=== PATIENT | male | born 1945 | race Caucasian/White ===

== ENCOUNTER 2017-06-27 21:25 | Inpatient (IN) | payer MEDICARE, OTHER ==
[~2017-06-27] VITALS: Ht 177.8 cm; Wt 121.6 kg
--- NOTE | ~2017-06-27 | H ---
[address] [address] HISTORY AND PHYSICAL Name: VIOLET VILCHIS Room: [address]#: [id number] Admission: 06/27/17 Attend Phys: Verna Marquez Discharge: 06/29/17 Date of : 41 Report #: [id number] THIS REPORT FOR: //name// Please refer to the History and Physical performed in the physician's office. By: [id number] Records Staff JN /HEATHER
[~2017-06-27 21:25] MED LIST: ALLOPURINOL 10100 M1 PO; ASPIR 8181 MG PO; ATENOLOL 25 MG25 M1 PO; ATENOLOL 50MG T50 MG PO; CLARITIN10 MG PO; COLCHICINE0.6 MG PO; COUMADIN 5 MG TA5 M1 PO; COUMADIN7.5 MG PO; FLURBIPROFEN100 MG PO; GLUCOTROL5 MG PO; HYDRALAZINE 2525 MG PO; MAGOX 400400 MG PO; NORCO 5-325 TA1 EAC1 PO; TRIAMTERENE/HCT1 CA1 PO; ZANTAC 150MG T150 MG PO
[2017-06-27 21:27] VITALS: BP 180/101
[2017-06-27] MEDS ORDERED: ELIQUIS5 MG PO (21:35)
[2017-06-27 22:00] LABS: ABSOLUTE BASOPHILS 0.1 thou/uL (0.0-0.2); ABSOLUTE EOSINOPHILS 0.2 thou/uL (0.0-0.7); ABSOLUTE LYMPHOCYTES 1.3 thou/uL (0.8-5.3); ABSOLUTE MONOCYTES 0.7 thou/uL (0.0-1.2); ABSOLUTE NEUTROPHILS 7.9 thou/uL (1.6-8.1); EOSINOPHILS 1.9 %; HEMATOCRIT 46.1 % (42.0-52.0); LYMPHOCYTES 12.6 %; MCH 33.8 pg (26.0-34.0); MCHC 34.6 g/dL (28.0-37.0); MCV 97.9 fL (80.0-100.0); MONOCYTES 6.6 %; MPV 7.7 fl. (7.2-11.1); NUCLEATED RBCS 0 /100WBC; PLATELET COUNT* 196 thou/uL (150-400); POLYS 77.9 %; RBC 4.71 mil/uL (4.50-6.00); RDW-CV 14.3 % (10.5-14.5); WBC 10.2 thou/uL (4.0-11.0)
[2017-06-27 22:07] LABS: ANION GAP 8 mmol/L (7-16); BUN 23 mg/dL (7-18); CALCIUM 9.2 mg/dL (8.5-10.1); CHLORIDE 102 mmol/L (98-107); CO2 31 mmol/L (21-32); CREATININE 1.5 mg/dL (0.6-1.3); GLUCOSE 129 mg/dL (70-99); POTASSIUM 3.7 mmol/L (3.5-5.1); SODIUM 141 mmol/L (136-145)
[2017-06-27 22:18] LABS: URINE BILIRUBIN NEGATIVE (Negative); URINE BLOOD 2+ (Negative); URINE CLARITY CLEAR; URINE COLOR YELLOW; URINE GLUCOSE-RANDOM NEGATIVE (Negative); URINE KETONES NEGATIVE (Negative); URINE LEUKOCYTES-REFLEX 1+ (Negative); URINE NITRITE-REFLEX NEGATIVE (Negative); URINE PROTEIN 3+ (Negative); URINE UROBILINOGEN 0.2 E.U./dl (0.2-1.0)
[2017-06-27 22:18] LABS: ALBUMIN 3.2 g/dL (3.4-5.0); ALKALINE PHOSPHATASE 94 U/L (46-116); LIPASE 160 U/L (73-393); NT-PRO BRAIN NAT PEPTIDE 412 pg/mL (<300); SGOT 25 U/L (15-37); SGPT 39 U/L (30-65); TOTAL BILIRUBIN 0.4 mg/dL (<0.1-1.0); TOTAL PROTEIN 7.3 g/dL (6.4-8.2); TROPONIN-I LEVEL <0.06 ng/mL (<0.06)
[2017-06-27 22:33] LABS: BACTERIA-REFLEX 1-9 Few /HPF (None Seen); CASTS None Seen /LPF (None Seen); SQUAMOUS NONE SEEN /LPF (0-3); URINE RBC 3-10 Few /HPF (0-2); URINE WBC-REFLEX 6-15 Few /HPF (0-5)
[2017-06-27 22:34] LABS: CRYSTALS None Seen /LPF (None Seen)
[2017-06-27 23:53] VITALS: BP 148/85
[2017-06-28] VITALS: BP 182/86
[2017-06-28 04:00] VITALS: BP 158/80
--- NOTE | 2017-06-28 05:37 | NUR ---
ASSUMED CARE OF PATIENT AT APPROXIMATELY 0000. PATIENT TO UNIT AT APPROXIMATELY 0000 ACCOMPANIED BY ED STAFFING. PATIENT ACCLIMATED TO ROOM AND CALL LIGHT ON FLOOR. PATIENT CONTINUES TO HAVE CRACKLES BILATERALLY IN LUNGS. ASSESSMENT YIELDS 3+ PITTING EDEMA ON RIGHT ANKLE AND 2+ PITTING EDEMA ON LEFT ANKLE. PULSES APPROPRIATE IN ALL EXTREMETIES. PATIETN CONTINUES TO BE ON 2L O2 WITH SATS ABOVE 93%. PATIENT UP WITH ASSIST TO BATHROOM AND HAS MOSTLY STEADY GAIT. PATIENT DENIES PAIN AND HAS REQUESTED NO PAIN MEDICATIONS OVERNIGHT. PATIENT VOIDING WELL AND HE STATES THAT HE FEELS LESS "TIGHT" IN HIS LOWER EXTREMETIES. NURSING TO FOLLOW-UP NECESSARY. ALL FALL PRECAUTIONS IN PLACE, INCLUDING CALL LIGHT WITHIN REACH. WILL CONTINUE TO MONITOR CLOSELY.
[2017-06-28 08:00] VITALS: BP 182/84
[2017-06-28 12:00] VITALS: BP 181/99
--- NOTE | 2017-06-28 14:38 | EKG ---
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: : 1945 Requested By: Pino Garcia Order Number: [id number] MD: Collin Rausch Measurements Intervals [place] Rate: 79 P: 34 NE: 176 QRS: 45 QRSD: 99 T: 32 QT: 393 QTc: 451 Interpretive Statements Sinus rhythm Inferior infarct, old Compared to ECG 11/09/2008 04:51:32 No significant changes Electronically Signed On 06-28-2017 14:38:10 TIMBER MANAGEMENT SPECIALIST by Collin Rausch [email or web address] <ELECTRONICALLY SIGNED> By: Collin Rausch MD, [facility] 06/28/17 1438 27 27 Collin Rausch MD, [facility] /EPI
[2017-06-28 16:31] VITALS: BP 136/80
--- NOTE | 2017-06-28 18:27 | NUR ---
ASSUMED CARE OF PT AT 0730. PT CONTINUES TO BE A&O X4 AND CAN BE FORGETFUL AT TIMES. HE HAS HAD NO C/O PAIN TODAY OTHER THAN MINOR LEFTY SHOULDER PAIN THAT HE DENIES THE NEED FOR PHARMACOLOGICAL INTERVENTION FOR. PT HAS A STEADY GAIT AND AMBULATES TO THE BATHROOM WITH SBA. LUNGS ARE COARSE WITH WHEEZE , BLE EDMA INS IMPROVING WITH IV LASIX AND PT IS URINATING ADEQUATE AMOUNTS AND IS REGULATING HIS FREE FLUID INTAKE. PT CURRENTLY RESTING IN CHAIR AT BEDSIDE. NURSING WILL CONTINUE TO MONITOR.
[2017-06-28 20:30] VITALS: BP 162/87
[2017-06-29] VITALS: BP 150/83
[2017-06-29 04:48] VITALS: BP 180/87
--- NOTE | 2017-06-29 05:17 | NUR ---
ASSUMED PT CARE AT 1930, PT IS A&OX4, TRACING NSR ON THE MONITOR, ON RA SATTING MID TO HIGH 90'S. PT IS UP AD KELLY IN HIS ROOM AND STABLE ON HIS FEET. PT DENIES ANY PAIN OR NEEDS AT THIS TIME. BED IN LOW POSITION, CALL LIGHT IN REACH, HOURLY ROUNDING COMPLETED FOR PT SAFETY.
[2017-06-29 08:00] VITALS: BP 137/80
[2017-06-29 13:20] VITALS: BP 135/80
[2017-06-29] MEDS ORDERED: LISINOPRIL2.5 MG PO (14:57)
[2017-06-29 14:59] VITALS: BP 135/80
--- NOTE | 2017-06-29 15:38 | NUR ---
ASSUMED CARE OF PT AT 0730. PT REMAINED A&O X4 CALM AND COOPERATIVE. NO C/O PAIN OR DISTRESS. PT DENIES ANY CHEST PAIN OR SHORTNESS OF BREATH. PT DISCHARGED WITH VIA PRIVATE VEHICLE. PT VERBALIZED UNDERSTANDING OF DC INSTRUCTIONS AND MEDICATION TEACHING. [facility] PER DR CARVALHO. PT TOOK ALL PERSONAL BELONGINGS AT TIME OF DISCHAGE. PT VSS AND SKIN DRY WARM AND INTACT UPON DISCHARGE.
== END 2017-06-29 15:35 | disposition home or self-care (01) | DRG 682 ==
LOC: M.ERS 21:25 → M.TBA-ER 22:54 → M.2W 22:54
PROVIDERS: Emergency Medicine; ADMIT Internal Medicine
DX: I12.9 Hypertensive chronic kidney disease with stage 1 through stage 4 chronic kidney disease, or unspecified chronic kidney disease (principal); I50.33 Acute on chronic diastolic (congestive) heart failure; N18.3 Chronic kidney disease, stage 3 (moderate); I73.9 Peripheral vascular disease, unspecified; I25.10 Atherosclerotic heart disease of native coronary artery without angina pectoris; M19.90 Unspecified osteoarthritis, unspecified site; I25.2 Old myocardial infarction; Z95.1 Presence of aortocoronary bypass graft; Z87.81 Personal history of (healed) traumatic fracture; Z79.01 Long term (current) use of anticoagulants; Z87.891 Personal history of nicotine dependence; Z79.82 Long term (current) use of aspirin; Z79.899 Other long term (current) drug therapy; Z88.2 Allergy status to sulfonamides; Z88.8 Allergy status to other drugs, medicaments and biological substances

== ENCOUNTER → 2017-09-02 | Outpatient (CLI) | payer MEDICARE, OTHER ==
[~2017-09-02] MED LIST changes: +ALLERGY RELIEF4 MG PO; +CIPRO500 MG PO; +ELIQUIS5 MG PO; +LISINOPRIL2.5 MG PO; +ONGLYZA5 MG PO
--- NOTE | 2017-09-03 14:44 | PAINCON ---
[address] [address] PAIN MANAGEMENT CONSULTATION Name: DENGVIOLET Angela Room: [facility].#: [id number] Admission: 09/02/17 Attend Phys: Hieu Casey MD Discharge: Date of : 41 Report #: [id number] THIS REPORT FOR: //name// CC: [facility] physician/PCP Hieu Casey DATE OF SERVICE: 09/02/2017 PRIMARY CARE PHYSICIAN: None. FOLLOWUP COMPLAINT: Return of pain down the left leg with cramping. FOLLOWUP HISTORY: The patient is a 71-year-old gentleman who has been seen in the pain clinic because of lumbar radiculopathy. He has undergone epidural steroid injections and gleaned benefits from these. He noted greater than 70% improvement after the last injection. He returns today indicating that he has noted over the past few weeks, some increased pain and discomfort, which is radiating down the posterior portion of his left leg. He underwent an epidural steroid injection in 2017 and noted greater than 80% improvement. He now returns because of the recurrence of pain and discomfort. He rates it as a 4-5/10. Continues to use hydrocodone on occasion as well as a nonsteroidal anti-inflammatory medication flurbiprofen 15 mg b.i.d. Also, he is on Eliquis. He has limited amount of nonsteroidal anti-inflammatory medication can take. Notes that his pain is prolonged with walking, sitting, standing, climbing stairs and activities of daily living. Bending can be problematic as well. Notes the pain improves somewhat with rest and with use of his medication. He has used a TENS unit in the past. He has returned today for another injection given that he clean such good results after the last injection. He does have a history of spinal stenosis. ALLERGIES: REVIEWED DILTIAZEM, PINDOLOL, SULFA, VERAPAMIL. MEDICATIONS: Not well tolerated by the patient are calcium channel blockers, statins, Visken, Lopressor, metformin, glyburide, LUCAS inhibitors. CURRENT MEDICATIONS: Include allopurinol tablets 300 mg daily for gout, Eliquis 5 mg b.i.d. for atrial fibrillation, aspirin 81 mg chewable, atenolol 25 mg total of 50 mg b.i.d. for blood pressure, colchicine 0.6 mg tablet for gout, flurbiprofen 50 mg daily, glyburide 5 mg b.i.d., hydrochlorothiazide/triamterene 37.5/25 mg daily, lisinopril 2.5 mg, magnesium oxide 400 mg daily, ranitidine 150 mg b.i.d. PAST MEDICAL HISTORY: 1. Coronary artery disease and bypass grafting in 05/1997, old inferior lateral. 2. [place] [address] PAIN MANAGEMENT CONSULTATION Name: DENGVIOLET Angela [facility]: [facility]#: [id number] Admission: 09/02/17 Attend Phys: Hieu Casey MD Discharge: Date of : 41 Report #: [id number] 3. Right knee arthroscopic surgery. 4. Right orbital eye repair. 5. Degenerative joint disease. 6. Right broken clavicle and fractured skull in accident. 7. Cardiac catheterization. 8. Elevated blood sugars. The patient states that he has now been diagnosed with diabetes. 9. Adrenal gland tumor. Follow at the [facility]. 10. Ablation for atrial fibrillation. 11. Stroke in 05/1997 prior to heart attack, second stroke, unknown, third stroke. 09/07/2013. PAIN CLINIC ASSESSMENT: 1. Osteoarthritis of the lower back. 2. Height 5 feet 10 inches, weight 260 pounds, BMI is 37. 3. Vital Signs: Blood pressure 151/95, heart rate 68, respiratory rate 16, room air saturation is 96%, temperature 98.0. 4. Pain intensity 3/10, increases with activity and walking. 5. Fall risk. The patient has not fallen. 6. Blood thinner, the patient is on Eliquis. 7. History of hypertension. The patient is being treated for hypertension. 8. Opioid therapy greater than 6 weeks. The patient is not on opioid therapy. 9. Risk assessment tool. 10. Functional assessment tool. 11. Recreational drug use. The patient denies tobacco 18-ovra-aoxe history, stopped in 06/10/1997. Alcohol: The patient denies use of alcoholic beverages. PHYSICAL EXAMINATION: GENERAL: The patient is a well-developed male. Appearance, appears his stated age. Orientation: The patient is alert and oriented x 3. Affect appears appropriate. HEENT: Normocephalic, atraumatic with extraocular eye muscles intact. Speech is fluent. Hearing appears normal. The patient has not complained of nasal congestion. NECK: Without JVD or bruits. LUNGS: Clear to auscultation. EXTREMITIES: The patient walks with a slight antalgic gait. Complains of pain and discomfort in the L5-S1 distribution. Muscle strength in the lower extremities, generally 5/5. Muscle bulk is symmetric is symmetrical bilaterally. IMPRESSION: 1. Lumbar radiculopathy involving the L5-S1 distribution on the left lower extremity. 2. Peripheral vascular disease, status post coronary artery bypass grafting, has a 3.3 cm infrarenal aneurysm. [address] [place] [address] PAIN MANAGEMENT CONSULTATION Name: VIOLET VILCHIS Room: [facility]#: [id number] Admission: 09/02/17 Attend Phys: Hieu Casey MD Discharge: Date of : 41 Report #: [id number] 3. Elevated blood sugars. 4. Atrial fibrillation/anticoagulated with Coumadin, now on Eliquis. 5. Status post heart attack in 1996, history of strokes 1996, second stroke, unknown, third stroke on 09/07/2013. 6. Hypertension. 7. Degenerative joint disease. 8. Adrenal tumors. RECOMMENDATIONS: We discussed treatment options with the patient. He is experiencing pain and discomfort, which first radiating down into his left leg in the L5-S1 distribution. The epidural steroid injection at the L4-L5 level performed previously for right-sided greater than an 80% pain relief. He has noted over the last few weeks, some increased pain and discomfort radiating down into the L5-S1 distribution on the left side. He would like to proceed with an epidural steroid injection. He has not taken his Eliquis for 3 days. He has come to the pain clinic with anticipation of undergoing an epidural steroid injection to help decrease his pain and discomfort. We will proceed with a treatment. PROCEDURE NOTE: We discussed treatment options with the patient. They include possible complication of the procedure, which could include infection, increased muscle soreness, bleeding, headache, nerve trauma, an improvement in pain, no improvement in pain or worsening of pain. The patient elects to proceed. PROCEDURE NOTE: The patient was placed in the prone position. Fluoroscopy was used to identify the L5-S1 interspace. Anterior and posterior viewing as well as lateral viewing of the site was accomplished using fluoroscopy. His back was sterilely prepped with Betadine. 0.25% bupivacaine was infiltrated in the target area of L5-S1 on the left side. This area had been sterilely prepped with Betadine. A 17-gauge Tuohy with loss of resistance technique was used to gain access to the epidural space. There was no CSF, heme or paresthesia. A total of 80 mg Depo-Medrol, 40 mg triamcinolone and 2 mL of 0.25% bupivacaine was injected. The patient tolerated the procedure well. There were no complications. He remained in the pain clinic for an appropriate amount of time. We would like to thank you for letting us participate in his care. We hope he continues to improve. <ELECTRONICALLY SIGNED> By: Hieu Casey MD 09/03/17 1444 1429 1951N. Elmer Casey MD /[facility]
== END | disposition home or self-care (01) ==
LOC: M.PC 02:46
DX: M54.16 Radiculopathy, lumbar region (principal); I73.9 Peripheral vascular disease, unspecified; Z95.1 Presence of aortocoronary bypass graft; I48.91 Unspecified atrial fibrillation; Z79.01 Long term (current) use of anticoagulants; I21.3 ST elevation (STEMI) myocardial infarction of unspecified site; I10 Essential (primary) hypertension; M19.90 Unspecified osteoarthritis, unspecified site; Z98.890 Other specified postprocedural states; I25.10 Atherosclerotic heart disease of native coronary artery without angina pectoris; Z79.899 Other long term (current) drug therapy; Z88.8 Allergy status to other drugs, medicaments and biological substances; Z79.84 Long term (current) use of oral hypoglycemic drugs; Z86.73 Personal history of transient ischemic attack (TIA), and cerebral infarction without residual deficits; Z68.37 Body mass index [BMI] 37.0-37.9, adult

== ENCOUNTER 2018-01-15 12:43 | Inpatient (IN) | payer MEDICARE, OTHER ==
[~2018-01-15] VITALS: Ht 177.8 cm; Wt 122.9 kg
[~2018-01-15 12:43] MED LIST changes: -ALLERGY RELIEF4 MG PO; -CIPRO500 MG PO; -ONGLYZA5 MG PO
[2018-01-15 12:44] VITALS: BP 189/108
[2018-01-15] MEDS ORDERED: ONGLYZA5 MG PO (12:55)
[2018-01-15] MEDS ORDERED: ALLERGY RELIEF4 MG PO (12:56)
[2018-01-15 13:25] LABS: URINE BILIRUBIN NEGATIVE (Negative); URINE BLOOD 2+ (Negative); URINE CLARITY CLEAR; URINE COLOR YELLOW; URINE GLUCOSE-RANDOM NEGATIVE (Negative); URINE KETONES NEGATIVE (Negative); URINE NITRITE-REFLEX NEGATIVE (Negative); URINE PROTEIN 3+ (Negative); URINE UROBILINOGEN 0.2 E.U./dl (0.2-1.0)
[2018-01-15 13:28] LABS: URINE LEUKOCYTES-REFLEX 2+ (Negative)
[2018-01-15 13:31] LABS: SQUAMOUS 0-3 Few /LPF (0-3)
[2018-01-15 13:32] LABS: BACTERIA-REFLEX 1-9 Few /HPF (None Seen); CASTS None Seen /LPF (None Seen); CRYSTALS None Seen /LPF (None Seen); MUCUS 0-3 Light strn/LPF (None Seen); URINE RBC 0-2 Rare /HPF (0-2); URINE WBC-REFLEX 6-15 Few /HPF (0-5)
[2018-01-15 13:44] LABS: ABSOLUTE BASOPHILS 0.1 thou/uL (0.0-0.2); ABSOLUTE EOSINOPHILS 0.1 thou/uL (0.0-0.7); ABSOLUTE LYMPHOCYTES 1.8 thou/uL (0.8-5.3); ABSOLUTE MONOCYTES 0.7 thou/uL (0.0-1.2); ABSOLUTE NEUTROPHILS 7.7 thou/uL (1.6-8.1); BASOPHILS 0.5 %; HEMATOCRIT 49.6 % (42.0-52.0); HEMOGLOBIN 17.1 gm/dL (14.0-18.0); LYMPHOCYTES 17.1 %; MCH 34.1 pg (26.0-34.0); MCHC 34.6 g/dL (28.0-37.0); MCV 98.6 fL (80.0-100.0); MPV 8.4 fl. (7.2-11.1); NUCLEATED RBCS 0 /100WBC; PLATELET COUNT* 243 thou/uL (150-400); POLYS 74.4 %; RBC 5.03 mil/uL (4.50-6.00); RDW-CV 13.9 % (10.5-14.5); WBC 10.3 thou/uL (4.0-11.0)
[2018-01-15 14:01] LABS: ALBUMIN 3.5 g/dL (3.4-5.0); CALCIUM 9.6 mg/dL (8.5-10.1); CREATININE 1.4 mg/dL (0.6-1.3); MAGNESIUM 1.6 mg/dL (1.8-2.4); POTASSIUM 3.4 mmol/L (3.5-5.1); TOTAL BILIRUBIN 0.5 mg/dL (<0.1-1.0); TOTAL PROTEIN 8.1 g/dL (6.4-8.2)
[2018-01-15 14:02] LABS: BE 1.6 mmol/L (-2 to +3); HCO3 25.6 mmol/L (22.0-26.0); PCO2 38.5 mmHg (35.0-45.0); PO2 74.5 mmHg (75.0-100.0)
[2018-01-15 15:08] LABS: APTT 31.7 Seconds (25.0-31.3); PROTIME 9.9 Seconds (9.20-11.50)
[2018-01-15 15:17] LABS: NT-PRO BRAIN NAT PEPTIDE 300 pg/mL (<300); TROPONIN-I LEVEL <0.06 ng/mL (<0.06)
[2018-01-15 15:38] VITALS: BP 150/81
[2018-01-15 16:22] VITALS: BP 218/109
--- NOTE | 2018-01-15 17:17 | NUR ---
ADMISSION ASSESSMENT AND HISTORY COMPLETED REFER TO COMPUTER CHARTING. 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 BED IN LOW AND LOCKED POSITION. CALL LIGHT WITHIN REACH. IV SALINE LOCKED. PATIENT ON ROOM AIR WITH O2 SATS READING 95%. WILL CONTINUE TO MONITOR THIS SHIFT.
[2018-01-15 18:02] VITALS: BP 155/88
[2018-01-15 20:00] VITALS: BP 149/80
--- NOTE | 2018-01-15 22:57 | NUR ---
CALL TO DOCTOR REGARDING ELEVATED BLOOD SUGAR AND LACK OF HOME MEDS. SEE ORDERS.
[2018-01-16] VITALS: BP 148/79
[2018-01-16 04:00] VITALS: BP 142/74
--- NOTE | 2018-01-16 04:35 | NUR ---
PATIENT RESTED IN BED, NO ACUTE CHANGES. PATIENT DID NOT SHOW SIGNS OF DISTRESS. PATIENT DID NOT SHOW SIGNS OF SOB. FALL PRECAUTIONS IN PLACE, CALL LIGHT WITH IN REACH, HOURLY ROUNIND OBSERVED.
[2018-01-16 04:59] LABS: MAGNESIUM 1.5 mg/dL (1.8-2.4); POTASSIUM 4.1 mmol/L (3.5-5.1)
--- NOTE | 2018-01-16 06:37 | NUR ---
PATIENT O2 IS AT 96% ON ROOM AIR.
[2018-01-16 07:15] VITALS: BP 167/87
--- NOTE | 2018-01-16 11:06 | NUR ---
ASSESSMENT COMPLETED REFER TO COMPUTER CHARTING. 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 BED IN LOW AND LOCKED POSITION. CALL LIGHT WITHIN REACH. PATIENT REPORTING NO PAIN, NAUSEA OR SHORTNESS OF BREATH. PATIENT ON ROOM AIR. IV SALINE LOCKED. PATIENT ON IN ROOM. WILL CONTINUE TO MONITOR THIS SHIFT.
[2018-01-16 11:40] VITALS: BP 165/84
[2018-01-16 15:41] VITALS: BP 158/85
--- NOTE | 2018-01-16 16:28 | EKG ---
[place] [address] ELECTROCARDIOGRAM REPORT Name: VIOLET VILCHIS Room: [address] IN R.#: [id number] Admission: 01/15/18 Attend Phys: Verna Marquez Discharge: Date of : 41 Report #: [id number] THIS REPORT FOR: //name// [facility] ED Test Date: 2018-01-15 Test Time: 12:49:04 Pat Name: VIOLET VILCHIS Department: Room: Gender: M Laboratory Tech: Raj SLADE : 1945 Requested By: Danette Bowen Order Number: [id number] MD: Frank Albarran Measurements Intervals [place] Rate: 87 P: 44 HI: 170 QRS: 46 QRSD: 98 T: 40 QT: 374 QTc: 450 Interpretive Statements Sinus rhythm Atrial premature complexes Abnormal R-wave progression, early transition Inferior infarct, old Abnormal lateral Q waves Compared to ECG 06/27/2017 21:28:16 Atrial premature complex(es) now present Q waves now present Myocardial infarct finding still present Electronically Signed On 01-16-2018 16:28:24 CDT by Frank Albarran [email or web address] <ELECTRONICALLY SIGNED> By: Frank Albarran MD, FACC 01/16/18 1628 1249 1249 Frank Albarran MD, FAC /EPI
[2018-01-16 20:00] VITALS: BP 162/77
[2018-01-17] VITALS: BP 157/86
[2018-01-17 04:00] VITALS: BP 156/83
[2018-01-17 05:04] LABS: CALCIUM 8.9 mg/dL (8.5-10.1); CREATININE 1.2 mg/dL (0.6-1.3); MAGNESIUM 1.4 mg/dL (1.8-2.4); PHOSPHORUS* 3.1 mg/dL (2.5-4.9); POTASSIUM 3.5 mmol/L (3.5-5.1)
--- NOTE | 2018-01-17 05:37 | NUR ---
ASSUMED CARE OF PATIENT AT 1900 THE PATIENT REMAINS SR WITH PAC ON THE ON THE MONITOR O2 SAT MAINTAINED ON RA CONTINUES TO BE UP AD KELLY SHOWER COMPLETED THIS SHIFT THE ROUTINE REGIMEN CONTINUES TO BE EFFECTIVE FOR SX MANAGEMENT PATIENT ADVANCING TOWARDS GOALS OF DISCHARGE SAFETY INTERVENTIONS CONTINUE BED LOWERED WHEELS LOCKED CALL LIGHT IN REACH SIDE RAILS UP REPORT TO BE GIVEN TO ONCOMING RN
[2018-01-17 08:00] VITALS: BP 177/98
[2018-01-17 12:00] VITALS: BP 178/84
--- NOTE | 2018-01-17 15:10 | NUR ---
Pt is A&O. Resides at home with his . Independent with ADLs. Pt uses a cane for mobility and has a cpap. available to assist as needed. No hx of HH or SNF. Pt's goal is to return home at [place]. Following for disposition.
--- NOTE | 2018-01-17 15:24 | NUR ---
RECIEVED O.T. ORDERS AND CHART REVIEWED. PT. IS UP AD KELLY. HE REPORTS TO O.T. THAT HE HAS BEEN INDEPENDENT TAKING A SHOWER, DRESSING, AND USING THE BATHROOM SINCE HE HAS BEEN ADMITTED. PT. SAYS THAT HE TAKES BREAKS PRN FOR TASKS AND MOVES SLOWER "THESE DAYS". THUS, O.T. SERVICES ARE NOT INDICATED AT THIS TIME.
[2018-01-17 15:45] VITALS: BP 166/91
--- NOTE | 2018-01-17 18:51 | NUR ---
ASSUMED PT CARE AT 0730, FULL ASSESMENT DONE CHARTED. PT A/O X4, ASKING TO GO HOME TODAY. VSS, SR/PVC'S ON THE MONITOR, PT CHANGED TO M/S TODAY. PT UP AD KELLY IN ROOM. MAGNESIUM REPLACED. PT TO STAY UNTIL URINE CULTURE IS BACK. PT EDUCATED ON THE PLAN. VERBALIZED UNDERSTANDING. WILL CONTINUE WITH PLAN OF CARE.
[2018-01-17 19:35] VITALS: BP 101/54
[2018-01-18] VITALS: BP 160/78
[2018-01-18 04:00] VITALS: BP 156/90
--- NOTE | 2018-01-18 04:42 | NUR ---
PT AAOX4 RESP REG AND UNLABORED SKIN W/D NOACUTE DISTRESS NOTED. PT HOPING URINE CX RESULTS WILL BE BACK TODAY, HE IS HOPING TO BE DCD TODAY. PT STATES FEELING MUCH BETTER. VSS AND NO ACUTE CHANGES DURING SHIFT, WILL CONTINUE TO MONITOR
[2018-01-18 05:13] LABS: HEMATOCRIT 44.4 % (42.0-52.0); HEMOGLOBIN 15.3 gm/dL (14.0-18.0); MCH 34.1 pg (26.0-34.0); MCHC 34.5 g/dL (28.0-37.0); MCV 98.9 fL (80.0-100.0); MPV 8.1 fl. (7.2-11.1); RBC 4.49 mil/uL (4.50-6.00); RDW-CV 13.9 % (10.5-14.5); WBC 8.8 thou/uL (4.0-11.0)
[2018-01-18 05:26] LABS: CALCIUM 9.4 mg/dL (8.5-10.1); CREATININE 1.2 mg/dL (0.6-1.3); POTASSIUM 3.6 mmol/L (3.5-5.1); TOTAL BILIRUBIN 0.6 mg/dL (<0.1-1.0); TOTAL PROTEIN 6.8 g/dL (6.4-8.2)
[2018-01-18 07:45] VITALS: BP 163/75
[2018-01-18] MEDS ORDERED: GLUCOTROL5 MG PO (09:17)
--- NOTE | 2018-01-18 10:33 | NUR ---
ASSUMED PT CARE AT 0730, FULL ASSESMENT DONE CHARTED. PT A/O X4, DENIES PAIN, VSS, M/S STATUS, PT WANTS TO DC TODAY, WAITING ON URINE CULTURE RESULTS. DR ARROYO OK WITH DC TODAY, WILL F/U WITH PT TOMORROW. WILL CONTINUE TO MONITOR UNTIL DISCHARGE.
[2018-01-18] MEDS ORDERED: CIPRO500 MG PO (10:54)
[2018-01-18 11:35] VITALS: BP 163/75
== END 2018-01-18 12:40 | disposition home or self-care (01) | DRG 871 ==
LOC: M.ERS 12:43 → M.TBA-ER 14:39 → M.2W 14:39
PROVIDERS: Internal Medicine; Personal Emergency Response Attendant; ADMIT Internal Medicine
DX: A41.9 Sepsis, unspecified organism (principal); J96.00 Acute respiratory failure, unspecified whether with hypoxia or hypercapnia; N39.0 Urinary tract infection, site not specified; I50.22 Chronic systolic (congestive) heart failure; E87.2 Acidosis; I13.0 Hypertensive heart and chronic kidney disease with heart failure and stage 1 through stage 4 chronic kidney disease, or unspecified chronic kidney disease; M19.90 Unspecified osteoarthritis, unspecified site; N18.3 Chronic kidney disease, stage 3 (moderate); E11.9 Type 2 diabetes mellitus without complications; B96.89 Other specified bacterial agents as the cause of diseases classified elsewhere; I48.91 Unspecified atrial fibrillation; I71.4 Abdominal aortic aneurysm, without rupture; M48.00 Spinal stenosis, site unspecified; E87.6 Hypokalemia; I25.2 Old myocardial infarction; Z79.2 Long term (current) use of antibiotics; Z79.899 Other long term (current) drug therapy; Z88.6 Allergy status to analgesic agent; Z88.2 Allergy status to sulfonamides; Z88.8 Allergy status to other drugs, medicaments and biological substances; Z95.1 Presence of aortocoronary bypass graft; Z86.73 Personal history of transient ischemic attack (TIA), and cerebral infarction without residual deficits; Z87.891 Personal history of nicotine dependence; Z79.01 Long term (current) use of anticoagulants

== ENCOUNTER → 2018-03-10 | Outpatient (CLI) | payer MEDICARE, OTHER ==
[~2018-03-10] MED LIST changes: +ALLERGY RELIEF4 MG PO; +CIPRO500 MG PO; +ONGLYZA5 MG PO
--- NOTE | 2018-04-06 10:00 | PAINCON ---
[address] [address] PAIN MANAGEMENT CONSULTATION Name: VIOLET VILCHIS Room: [facility]..#: [id number] Admission: 03/10/18 Attend Phys: Hieu Caesy MD Discharge: Date of : 41 Report #: [id number] THIS REPORT FOR: //name// CC: [facility] physician/PCP Hieu Casey DATE OF SERVICE: 03/10/2018 FOLLOWUP COMPLAINT: "Pain has been doing pretty good, but I have noticed some pain that is radiating down to the back leg on both sides again. Left side is worse than the right." FOLLOWUP HISTORY: The patient is a 72-year-old gentleman who has been followed in the pain clinic because of lumbar radiculopathy. He has undergone epidural steroid injections in the past. They have proven beneficial. He has gleaned greater than 50% improvement. At this juncture, he has noted some return of pain. It has been more problematic with activity. He uses his nonsteroidal anti-inflammatory medications p.r.n. He also takes Eliquis. He has stopped taking this medication per his desire to undergo an epidural steroid injection. Notes that the pain is worse when walking, sitting, standing, climbing stairs, lifting and bending. He finds that his medication is helpful. He has been off the Eliquis for 72 hours with the anticipation of undergoing an epidural steroid injection. ALLERGIES: DILTIAZEM, PINDOLOL, SULFA, VERAPAMIL. Medications not well tolerated by the patient are calcium-channel blockers, statins, Visken, Lopressor, metformin, glyburide, LUCAS inhibitors. CURRENT MEDICATIONS: Include allopurinol 300 mg 4 gout, Eliquis 5 mg b.i.d. for atrial fibrillation, aspirin 81 mg chewable, atenolol 25 mg total of 50 b.i.d., colchicine 0.6 mg for gout, flurbiprofen 50 mg p.r.n., glyburide 5 mg b.i.d., hydrochlorothiazide/triamterene 37.5/25, lisinopril 2.5 mg, magnesium oxide 400 mg, ranitidine 150 mg b.i.d. PAIN CLINIC ASSESSMENT: 1. Osteoarthritis of the lower back. 2. Height 5 feet 10 inches, weight 272 pounds, BMI is 38. 3. Vital signs: Blood pressure 197/96, heart rate 74, respiratory rate 16. Pain score 2/10. 4. Fall risk. The patient has not fallen in the last 3 months. 5. Blood thinner. The patient is on Eliquis. 6. Hypertension. The patient is being treated for hypertension. 7. Opiate therapy greater than 6 weeks. The patient denies use of opioid medications. 8. Risk assessment [place] [address] PAIN MANAGEMENT CONSULTATION Name: VIOLET VILCHIS Room: [facility]#: [id number] Admission: 03/10/18 Attend Phys: Hieu Casey MD Discharge: Date of : 41 Report #: [id number] 9. Functional assessment tool. 10. Recreational drug use. The patient denies use of recreational drugs. 11. Tobacco: The patient has a 70-pozh-ggkf history. 12. Alcohol: The patient denies use of alcohol. PHYSICAL EXAMINATION: GENERAL: The patient is a well-developed, well-nourished, white male, appears his stated age. He is alert and oriented x 3. His affect is appropriate. HEENT: Normocephalic, atraumatic. Extraocular eye muscles intact. Sclerae nonicteric. Speech is fluent. Hearing is within normal limits. Mucous membranes are moist. NECK: Without JVD or bruits. LUNGS: Clear to auscultation. HEART: Regular rate/history of atrial fibrillation. EXTREMITIES: The patient walks with an antalgic gait. Complains of pain and discomfort in the L5-S1 distribution. Muscle strength in lower extremity judged to be 5/5 for the major muscle groups. Notes muscle bulk is symmetrical bilaterally. IMPRESSION: 1. Lumbar radiculopathy involving the L5-S1 distribution of the left lower extremity. 2. Peripheral vascular disease, status post coronary artery disease and bypass grafting. 3. A 3mm infrarenal aneurysm. 4. Elevated blood sugars. 5. Atrial fibrillation/anticoagulation with Coumadin, now on Eliquis. 6. Status post heart attack in 1996, history of strokes in 1996, second stroke unknown, third stroke on 09/07/2013 7. Hypertension. 8. Degenerative joint disease. 9. Adrenal tumors. RECOMMENDATIONS: We discussed treatment options with the patient. At this juncture, he feels that his pain improved with the epidural steroid injection. He would like to proceed with another injection. Pain is primarily on the left side with pain radiating down into the left pole L5-S1 area. Risks and benefits of the procedure were again reviewed with the patient. They could include but are not limited to infection, increased muscle soreness, headache, bleeding, worsening of pain, no improvement in pain. The patient has stopped the Eliquis with a presumption of undergoing an epidural steroid injection. PROCEDURE: The patient was taken to the procedure area. He was assisted in getting on the examination table. His back was sterilely prepped with a Betadine solution. Anterior, posterior and lateral viewing using fluoroscopy were instituted. The patient's back was then anesthetized using 0.25% [place] [address] PAIN MANAGEMENT CONSULTATION Name: VIOLET VILCHIS Room: [facility]#: [id number] Admission: 03/10/18 Attend Phys: Hieu Casey MD Discharge: Date of : 41 Report #: [id number] bupivacaine with a 25-gauge needle. A 17-gauge Tuohy with loss of resistance technique was used to gain access to the epidural space. There was no CSF, heme or paresthesia. Total of 80 mg Depo-Medrol, 40 mg triamcinolone and 2 mL of 0.25% bupivacaine was injected. The patient tolerated the procedure well. There were no complications. He remained in the pain clinic for an appropriate amount of time. He will follow up in the future as needed. We would like to thank you for letting us participate in his care. We hope he continues to improve. <ELECTRONICALLY SIGNED> By: Hieu Casey MD 04/06/18 1000 1601 2319N. Elmer Casey MD /[facility]
== END | disposition home or self-care (01) ==
LOC: M.PC 03-05 13:00
DX: M54.16 Radiculopathy, lumbar region (principal); G89.29 Other chronic pain; I11.0 Hypertensive heart disease with heart failure; I50.9 Heart failure, unspecified; Z95.1 Presence of aortocoronary bypass graft; I25.10 Atherosclerotic heart disease of native coronary artery without angina pectoris; I48.91 Unspecified atrial fibrillation; I73.9 Peripheral vascular disease, unspecified; M19.90 Unspecified osteoarthritis, unspecified site; F17.210 Nicotine dependence, cigarettes, uncomplicated; Z86.73 Personal history of transient ischemic attack (TIA), and cerebral infarction without residual deficits; Z79.899 Other long term (current) drug therapy; Z79.01 Long term (current) use of anticoagulants; Z98.890 Other specified postprocedural states; Z79.82 Long term (current) use of aspirin; Z88.8 Allergy status to other drugs, medicaments and biological substances; Z88.2 Allergy status to sulfonamides; Z87.440 Personal history of urinary (tract) infections

== ENCOUNTER → 2018-10-01 | Outpatient (CLI) | payer MEDICARE, OTHER | END | disposition home or self-care (01) | LOC: M.PC 08:38 | DX: M54.16 Radiculopathy, lumbar region (principal); Z79.01 Long term (current) use of anticoagulants; Z88.2 Allergy status to sulfonamides; Z88.8 Allergy status to other drugs, medicaments and biological substances; Z79.899 Other long term (current) drug therapy ==

== ENCOUNTER → 2018-12-29 | Outpatient (CLI) | payer MEDICARE, OTHER ==
--- NOTE | ~2018-12-29 | PAINCON ---
[address] [address] PAIN MANAGEMENT CONSULTATION Name: VIOLET VILCHIS Room: [facility] SAMMY Muñoz.#: [id number] Admission: 12/29/18 Attend Phys: Hieu Casey MD Discharge: Date of : 41 Report #: [id number] THIS REPORT FOR: //name// CC: Hieu Casey NO PCP DATE OF SERVICE: 12/29/2018 CHIEF COMPLAINT: Here for another injection. The pain was improved after the last injection and is now started to increase. It was worse last week, but has been continued to get better. About 70% of the pain is in the left side. The other 30% is in the right side. Denies any new bowel or bladder dysfunction. Has pain and discomfort, which he describes as a 3-4/10. Last week, it was a 9/10. Notes that when he goes to stand up, there is some tightness in the lateral portions of his thighs bilaterally. He does not feel that is a muscle spasm and states that it feels that his legs do not want to "release." He does walk with a cane on occasion. Sometimes feels "wobbly on his feet." Notes that walking, sitting, standing, climbing stairs, lifting and bending can be problematic. He did stop his Eliquis on 12/26/2018 for the injection today on 12/29/2018. He feels that his medications are helpful. He is not using a narcotic medications. CURRENT MEDICATIONS: Allopurinol 300 mg, Eliquis 5 mg b.i.d., , aspirin 81 mg, atenolol 25 mg, total of 50 mg b.i.d., colchicine 0.6 mg for gout, flurbiprofen 50 mg, glyburide 5 mg b.i.d., hydrochlorothiazide/triamterene 37.5/25, lisinopril 2.5 mg, magnesium oxide 400 mg, ranitidine 150 mg b.i.d. ALLERGIES: DILTIAZEM, PINDOLOL, SULFA, VERAPAMIL, Pain medications have not been tolerated well, CALCIUM CHANNEL BLOCKERS, STATINS, VISKEN, LOPRESSOR, METFORMIN, GLYBURIDE, LUCAS INHIBITORS. PAIN CLINIC ASSESSMENT/PQRS: 1. The patient has pain in the lower portion of his back. He is not being treated for rheumatoid arthritis. 2. Height 5 feet 8 inches, weight 265 pounds, BMI is 41.0. 3. Vital Signs: Blood pressure 164/91, heart rate 72, respiratory rate 20, room air saturation 95%, temperature 97.7, pain 4-5/10. 4. Fall history: The patient has not fallen in the last 3 months. 5. Blood thinner. The patient is on a blood thinner and stopped it approximately 3 days ago for the injection. 6. History of hypertension. The patient has been treated for hypertension. 7. Opioids greater than 6 weeks. The patient is not on her opioid regimen. 8. Risk assessment tool over opioid use. 9. Functional assessment tool. 10. Recreational drug use. The patient denied. 11. Tobacco: The patient had a 30 pack year smoking history in the past. [address] [place] [address] PAIN MANAGEMENT CONSULTATION Name: VIOLET VILCHIS Room: [facility]#: [id number] Admission: 12/29/18 Attend Phys: Hieu Casey MD Discharge: Date of : 41 Report #: [id number] 12. Alcohol: The patient denies use of alcoholic beverages. PHYSICAL EXAMINATION: GENERAL: The patient is a well-developed, well-nourished white male. Appears his stated age. He is alert and oriented x 3. Affect is appropriate. Speech is slow. The patient goes from a sitting to a standing position with use of his hands. HEENT: Normocephalic, atraumatic. Extraocular eye muscles intact. Sclerae nonicteric. Mucous membranes are moist. NECK: Without adenopathy or JVD. LUNGS: Generally clear to auscultation without rhonchi. HEART: Regular rate with history of atrial fibrillation. EXTREMITIES: Upper extremity muscle strength is judged to be 5-/5 for the major muscle groups in the upper extremity. Lower extremity muscle strength is 4+/5. The patient uses hands go from sitting to walking position. Muscle bulk symmetrical. The patient has complained of a tightening sensation in the lateral portion of his leg with going from a sitting to a standing position. IMPRESSION: 1. Lumbar radiculopathy involving the L5-S1 dermatomal distribution with left side more problematic than the right. 2. Peripheral vascular disease, status post coronary artery bypass grafting. 3. Infrarenal aneurysm. 4. Elevated blood sugars. 5. Atrial fibrillation/anticoagulation with Coumadin, now on Eliquis. 6. Status post heart attack in 1996. 7. History of stroke 1996. 8. Second stroke, unknown. Third stroke on 09/07/2013. 9. Hypertension. 10. Degenerative joint disease. 11. Adrenal tumors. RECOMMENDATIONS: We discussed treatment options with the patient. Risks and benefits of an epidural steroid injection were discussed. Possible complications of the procedure were explained. They include, but are not limited to infection, increased muscle soreness, bleeding, nerve damage, spinal headache and the patient elects to proceed. PROCEDURE NOTE: The patient was taken to the procedure area. He was then assisted in getting on the examination table. His back was sterilely prepped in the L5-S1 area. A 0.25% bupivacaine was infiltrated in this area. A 17-gauge Tuohy at the L5-S1 area was then used to gain access to the epidural area. A midline approach with a left lateral paramedian approach was undertaken. Aspiration was negative. A 17-gauge 2 and A total of 120 mg a total of 80 mg Depo-Medrol, 40 mg triamcinolone and 2 mL of 0.25% bupivac[place] [address] PAIN MANAGEMENT CONSULTATION Name: VIOLET VILCHIS Room: [facility]#: [id number] Admission: 12/29/18 Attend Phys: Hieu Casey MD Discharge: Date of : 41 Report #: [id number] The patient tolerated the procedure well. He remained in the pain clinic for an appropriate amount of time. He will resume his Eliquis tomorrow. He will call us if he has any concerns. We would like to thank you for letting us participate in his care. We hope he continues to improve. A total of about 15 seconds fluoroscopy time was used. By: [id number]. Elmer Casey MD /PMT
== END | disposition home or self-care (01) ==
LOC: M.PC 05:14
DX: M54.16 Radiculopathy, lumbar region (principal); G89.29 Other chronic pain; I11.0 Hypertensive heart disease with heart failure; I50.9 Heart failure, unspecified; I48.91 Unspecified atrial fibrillation; I25.2 Old myocardial infarction; I73.9 Peripheral vascular disease, unspecified; M19.90 Unspecified osteoarthritis, unspecified site; Z95.1 Presence of aortocoronary bypass graft; Z86.73 Personal history of transient ischemic attack (TIA), and cerebral infarction without residual deficits; Z98.890 Other specified postprocedural states; Z85.858 Personal history of malignant neoplasm of other endocrine glands; Z79.899 Other long term (current) drug therapy; Z87.891 Personal history of nicotine dependence; Z88.2 Allergy status to sulfonamides; Z88.8 Allergy status to other drugs, medicaments and biological substances; Z87.440 Personal history of urinary (tract) infections